=== PATIENT | male | born 1995 | race Hispanic/Latino ===

== ENCOUNTER 2023-07-22 13:58 | Emergency (ER) | payer OTHER, BC ==
[~2023-07-22] VITALS: Ht 175.3 cm; Wt 111.0 kg
[2023-07-22] MEDS ORDERED: HYDROCODONE/ACETA 5/325 TAB PO ONE (15:00)
[2023-07-22] MEDS ORDERED: HYDROCODON-ACE1 EA10 PO (16:37)
[2023-07-22 16:48] VITALS: BP 139/103
== END 2023-07-22 16:49 | disposition home or self-care (01) ==
LOC: ED 13:58
DX: S52.351A Displaced comminuted fracture of shaft of radius, right arm, initial encounter for closed fracture (principal); W11.XXXA Fall on and from ladder, initial encounter; Y99.0 Civilian activity done for income or pay
CPT/HCPCS: 73080; 73090